=== PATIENT | female | born 2000 | race Caucasian/White ===

== ENCOUNTER 2019-06-09 19:19 | Outpatient (CLI) | payer MEDICAID ==
[2019-06-09 21:11] LABS: ADD UMIC YES; UR ASCORBIC ACID NEGATIVE (NEGATIVE); UR BACTERIA FEW /HPF (NONE SEEN); UR BILIRUBIN (Dip) NEGATIVE (NEGATIVE); UR BLOOD (Dip) NEGATIVE (NEGATIVE); UR CLARITY CLEAR (CLEAR); UR COLOR YELLOW (YELLOW); UR GLUCOSE (Dip) NEGATIVE (NEGATIVE); UR KETONES (Dip) TRACE mg/dL (NEGATIVE); UR LEUKOCYTE ESTERASE (Dip) TRACE Leu/ul (NEGATIVE); UR NITRITE (Dip) NEGATIVE (NEGATIVE); UR RBC 0 /HPF (0-5); UR SPECIFIC GRAVITY (Dip) 1.009 (1.003-1.030); UR SQUAMOUS EPITHELIAL CELL FEW /HPF (FEW); UR TOTAL PROTEIN (Dip) NEGATIVE (NEGATIVE); UR UROBILINOGEN (Dip) NEGATIVE (NEGATIVE); UR WBC 2 /HPF (0-5)
== END 2019-06-10 00:15 | disposition home or self-care (01) ==
LOC: OBT 19:19 → L-D 19:22
DX: O62.9 Abnormality of forces of labor, unspecified (principal); Z3A.37 37 weeks gestation of pregnancy
CPT/HCPCS: 76818; 81001

== ENCOUNTER 2019-06-23 20:12 | Inpatient (IN) | payer MEDICAID ==
[2019-06-23] MEDS ORDERED: LACTATED RINGER'S 1,000 ML IV (20:44)
[2019-06-23] MEDS ORDERED: LIDOCAINE 1% (MPF) 30 ML INJ INJ (21:00)
[2019-06-23] MEDS ORDERED: CARBOPROST 250 MCG INJ IM (21:00)
[2019-06-23] MEDS ORDERED: OXYTOCIN 30 UNITS/LR 500 ML IV ×2 (21:00)
[2019-06-23] MEDS ORDERED: METHYLERGONOVINE 0.2 MG INJ IM (21:00)
[2019-06-23] MEDS ORDERED: MISOPROSTOL 200 MCG TAB PR (21:00)
[2019-06-23] MEDS: LACTATED RINGER'S 1,000 ML IV (21:39)
[2019-06-23 22:40] LABS: ADD MAN DIFF? NO
[2019-06-23 22:41] LABS: BASOPHILS % 0.2 % (0.0-2.0); EOSINOPHILS % 0.1 % (0.0-7.0); HEMATOCRIT 36.6 % (37.0-47.0); HEMOGLOBIN 12.4 g/dl (12.0-16.0); LYMPHOCYTES # 1.8 10^3/ul (0.8-2.9); LYMPHOCYTES % 20.7 % (15.0-51.0); MEAN CORPUSCULAR HEMOGLOBIN 31.1 pg (29.0-33.0); MEAN CORPUSCULAR HGB CONC 33.9 g/dl (32.0-37.0); MEAN CORPUSCULAR VOLUME 91.7 fl (82.0-101.0); MEAN PLATELET VOLUME 10.7 fl (7.4-10.4); MONOCYTE # 0.6 10^3/ul (0.3-0.9); MONOCYTES % 6.3 % (0.0-11.0); NEUTROPHIL # 6.2 10^3/ul (1.6-7.5); NEUTROPHILS % 71.9 % (39.0-77.0); PLATELET COUNT 207 10^3/UL (140-415); RED BLOOD COUNT 3.99 10^6/ul (4.20-5.40); RED CELL DISTRIBUTION WIDTH 14.3 % (11.5-14.5)
[2019-06-23 22:41] LABS: WHITE BLOOD COUNT 8.7 10^3/ul (4.8-10.8)
[2019-06-23 23:01] LABS: INR 0.87; PARTIAL THROMBOPLASTIN TIME 27.4 Sec (23.0-35.0); PROTIME 11.9 Sec (11.9-14.9); PT RATIO 0.9
[2019-06-23 23:29] LABS: HEPATITIS B SURFACE ANTIGEN NEGATIVE (NEGATIVE)
[2019-06-23] MEDS: OXYTOCIN 30 UNITS/LR 500 ML IV (23:29)
[2019-06-24] MEDS: BUTORPHANOL 2 MG INJ IV (01:27)
[2019-06-24] MEDS: OXYTOCIN 30 UNITS/LR 500 ML IV (02:17)
[2019-06-24] MEDS: IBUPROFEN 600 MG TAB PO ×4 (02:33→17:23)
[2019-06-24] MEDS ORDERED: DIBUCAINE 1% 30 GM OINT TOP (04:00)
[2019-06-24] MEDS ORDERED: CARBOPROST 250 MCG INJ IM (04:00)
[2019-06-24] MEDS ORDERED: METHYLERGONOVINE 0.2 MG INJ IM (04:00)
[2019-06-24] MEDS ORDERED: OXYTOCIN 30 UNITS/LR 500 ML IV (04:00)
[2019-06-24] MEDS ORDERED: WITCH HAZEL/GLYCERIN PAD PR (04:00)
[2019-06-24] MEDS ORDERED: MISOPROSTOL 200 MCG TAB PR (04:00)
[2019-06-24] MEDS ORDERED: BENZOCAINE 20% 56 ML SPRAY TOP (04:00)
[2019-06-24] MEDS ORDERED: HYDROCODONE/APAP (5/325) TAB PO (04:00)
[2019-06-24] MEDS ORDERED: ACETAMINOPHEN 325 MG TAB PO (04:00)
[2019-06-24] MEDS: MINERAL OIL LIGHT 10 ML VIAL TOP (05:29)
[2019-06-24] MEDS: LACTATED RINGER'S 1,000 ML IV* ×3 (05:30→22:22)
[2019-06-24] MEDS: SENNA/DOCUSATE NA (8.6MG/50MG) TAB PO ×2 (08:36→21:00)
[2019-06-24] MEDS ORDERED: LANOLIN HPA 1 PKT TOP (13:00)
[2019-06-24] MEDS: LANOLIN HPA 1 PKT TOP (13:45)
[2019-06-24 14:57] LABS: RAPID PLASMA REAGIN NONREACTIVE (NR)
[2019-06-25] MEDS: IBUPROFEN 600 MG TAB PO ×5 (00:03→23:44)
[2019-06-25] MEDS: LACTATED RINGER'S 1,000 ML IV* (03:46)
[2019-06-25 06:52] LABS: ADD MAN DIFF? NO
[2019-06-25 06:58] LABS: HEMATOCRIT 32.1 % (37.0-47.0); HEMOGLOBIN 10.8 g/dl (12.0-16.0); MEAN CORPUSCULAR HEMOGLOBIN 31.6 pg (29.0-33.0); MEAN CORPUSCULAR HGB CONC 33.6 g/dl (32.0-37.0); MEAN CORPUSCULAR VOLUME 93.9 fl (82.0-101.0); PLATELET COUNT 183 10^3/UL (140-415); RED BLOOD COUNT 3.42 10^6/ul (4.20-5.40); RED CELL DISTRIBUTION WIDTH 14.7 % (11.5-14.5)
[2019-06-25 06:58] LABS: WHITE BLOOD COUNT 9.7 10^3/ul (4.8-10.8)
[2019-06-25 06:59] LABS: BASOPHILS % 0.3 % (0.0-2.0); EOSINOPHILS % 0.2 % (0.0-7.0); LYMPHOCYTES # 2.9 10^3/ul (0.8-2.9); LYMPHOCYTES % 30.1 % (15.0-51.0); MEAN PLATELET VOLUME 10.6 fl (7.4-10.4); MONOCYTE # 0.6 10^3/ul (0.3-0.9); MONOCYTES % 6.2 % (0.0-11.0); NEUTROPHIL # 6.1 10^3/ul (1.6-7.5); NEUTROPHILS % 62.4 % (39.0-77.0)
[2019-06-25] MEDS: SENNA/DOCUSATE NA (8.6MG/50MG) TAB PO ×2 (07:48→21:00)
[2019-06-26] MEDS: IBUPROFEN 600 MG TAB PO ×2 (05:49→11:31)
[2019-06-26] MEDS: SENNA/DOCUSATE NA (8.6MG/50MG) TAB PO (07:37)
[2019-06-26] MEDS: DIPHTH/TET/ACEL PERTUSS (ADULT) 0.5 ML VIAL IM* (07:37)
[2019-06-26] MEDS: LANOLIN HPA 1 PKT TOP (11:23)
== END 2019-06-26 18:17 | disposition home or self-care (01) | DRG 807 ==
LOC: OBT 20:12 → PP1 06-24 03:44 → L-D 20:13 → OBT 20:44 → L-D 20:37
PROVIDERS: Obstetrics & Gynecology
PROC: 10E0XZZ Delivery of Products of Conception, External Approach (ICD-10-PCS; principal; 2019-06-24)
DX: O69.81X0 Labor and delivery complicated by cord around neck, without compression, not applicable or unspecified (principal); Z3A.39 39 weeks gestation of pregnancy; Z37.0 Single live birth
CPT/HCPCS: 36415; 85025; 85610; 85730; 86592; 86850; 86900; 86901; 87340